=== PATIENT | male | born 1950 | race Caucasian/White ===

== ENCOUNTER 2016-05-19 05:54 | Day surgery (SDC) | payer OTHER ==
[2016-05-19] VITALS (8 sets, daily range): BP systolic 85–144; BP diastolic 46–93; PULSE 56–71; RESP 9–18; O2SAT 94–99
[~2016-05-19] VITALS: Ht 182.9 cm; Wt 128.3 kg
[~2016-05-19 05:54] MED LIST: CHOL500011 PO; GABA600T2 PO; GLUC500T12 PO; LOSA100T29 PO; MAGN30TA3 PO; OXYC1TAB24 PO; PROP120C2 PO; TAMS0.4C98 PO; TERA5CAP6 PO; ZOF8 PO
[2016-05-19] MEDS ORDERED: Ondansetron 2 mg/mL 2 mL Inj ONE (05:55)
[2016-05-19] MEDS ORDERED: Propofol 10,000 mCg/mL 20 mL Inj ONE (05:55)
[2016-05-19] MEDS ORDERED: CeFAZolin Inj 3 Gm/ D5W 50 mL Bag IV ONE (05:55)
[2016-05-19] MEDS ORDERED: Ketamine 10 mg/mL 20 mL Inj ONE (05:55)
[2016-05-19] MEDS ORDERED: fentaNYL-PF 50 mCg/mL 2 mL Inj ONE (05:55)
[2016-05-19] MEDS ORDERED: Dexamethasone 4 mg/mL Inj ONE (05:55)
[2016-05-19] MEDS ORDERED: CeFAZolin Inj 3 GM in IV Premix IV ONE (06:00)
[2016-05-19] MEDS ORDERED: Lactated Ringer's 1,000 ML IV ONE (06:26)
--- NOTE | 2016-05-19 08:37 | PCM.HPANE ---
Patient Data Surgeon Admitting Provider: Attending Provider:Sussy Holliday MD Primary Care Physician:Daylin Huffman PA-C Other Provider:Candice Rose Anesthesia Reason for Visit Gross Hematuria, Bladder Mass Ht/WT & BMI Height (Feet): 6 Height (Inches): 0.00 Weight (Kilograms): 128.280 Body Mass Index 38.00 Allergies Coded Allergies: No Known Allergies (Unverified , 05/17/16) Past Anesthesia History Anesthesia History: Denies:: Abnormal Airway, Anesthesia Reactions ("panic attack" after waking up from dalila,no problems with other), Difficult Intubation, Fam Anesthesia Reaction, Fam Malignant Hypertherm Diabetes History Hx Diabetes?: No MRSA MRSA: No Medications Hypertension Medication: Yes Home Meds Incl Beta Ellen: Yes (PROPROANLOL) Date Beta Ellen Taken: May 19, 2016 Time Beta Ellen Taken: 0430 Reported Medications Gabapentin 600 Mg [id number] Mg PO QID PRN For Pain Ref 0 05/17/16 Ondansetron (Zofran)8 Mg Tablet8 Mg PO BID PRN For Nausea 05/17/16 Cholecalciferol (Vitamin D3) (Vitamin D3)5,000 Unit Tablet5,000 Unit PO DAILY 05/17/16 Terazosin 5 Mg Capsule5 Mg PO BID Ref 0 05/17/16 Tamsulosin (Flomax)0.4 Mg Capsule0.8 Mg PO DAILY Ref 0 05/17/16 Propranolol ER 120 Mg Cap.sa.[id number] Mg PO BID 05/17/16 oxyCODONE-Acetaminophen 5-325 mg 1 Each Tablet1 Tab PO Q4H PRN For Pain Ref 0 05/17/16 Magnesium 30 Mg [id number] Mg PO DAILY 05/17/16 Losartan Potassium 100 Mg [id number] Mg PO DAILY 05/17/16 Glucosamine 500 Mg [id number] Mg PO DAILY 05/17/16 History HEENT History: Positive for:: Hearing Problem Denies:: Abnormal Airway Cataracts Difficult Intubation Dysphagia Glaucoma Sinus Problem TMJ Cardiovascular History: Positive for:: Hypertension Denies:: AICD Abdominal Aortic Aneurism Atrial Fibrillation Cardiac Surgery Chest Pain Congestive Heart Failure Coronary Artery Disease Edema Heart Murmur Irregular Heartbeat Pacemaker Peripheral Vascular Rheumatic Fever Hx of Respiratory Problem?: Yes Respiratory History: Positive for:: Asthma (with allergies when younger) Pneumonia (hx of bronchial pneumonia- 2-3 years ago) Denies:: COPD Emphysema Oxygen Administration Tuberculosis Use of C-PAP Machine (has not had sleep study, recommended ) Use of Inhalers / NEBS Hx Neurologic Problems?: Yes Neurological History: Positive for:: Headaches (migraines- on propanolol ( years ago)) Denies:: CVA Dizziness Multiple Sclerosis Parkinson's Disease Seizures TIA Hx of GI Problems?: Yes Gastrointestinal History: Positive for:: Gall Bladder Disease (removed ) Gastroesphageal Reflux (not taking med for 1-2 years) Denies:: Cirrhosis Gastrointestinal Bleeding Hepatitis Hiatal Hernia Liver Disease Rectal Bleeding Hx of Problems?: Yes Genitourinary History: Positive for:: Kidney Stones (hx of, passed spontaneously) Denies:: Urinary Tract Infection (not current ) Other Pertinent History: bladder tumor current admission problem Male Hx: Denies:: Prostate Problems Scrotal Mass Testicular Surgery Skin History: Denies:: History Skin Disorders? Pressure Ulcers Hx Musculoskeletal Problems?: Yes Musculoskeletal History: Positive for:: Osteoarthritis Denies:: Back Injury Fibromyalgia Joint Replacement Musculoskeletal Trauma (knee scope hx) Myasthenia Gravis Rheumatoid Arthritis Hx of Psycho/Social Problems?: No Psycho Social History: Denies:: Anxiety Hx Depression Hx Surgeries?: Yes (knee scope, left hydrocele. dalila) Hx Any Other Health Problems?: Yes Other History: Denies:: Cancer Thyroid Disease History Blood Transfusions: Positive for:: Accept Blood Products? Denies:: Blood Transfusions Hx Diabetes: No Hx Alcohol Use: YesAlcoholic Drinks Per Day: 2-3 drinks weekHx Substance Use: Yes (marijuana- edibles and inhalant)Have You Smoked inLast 12 mo: No Stop/Bang S-Snoring: Do You Snore Loudly: No T-Tired: feel tired, fatigued: Yes O-Obsered: Observed not breath: Yes P-Blood Pressure: treated: Yes B- Body Mass Index > 35 kg/m2: Yes A- Age over 50: Yes N- Neck Large Circumference: No G- Gender Male: Yes KAITLIN Total Score: 6 KAITLIN Risk Assessment: High Risk, =/>3 Yes KAITLIN Category 4 OutPt Procedure: Yes Risk Assessment Category Category 1A: Patient has history of documented sleep apnea, and HAS NOT received any narcotic, sedative or anesthesia administration during this stay. Category 1B: Patient has history of documented sleep apnea, and HAS received any narcotic , sedative or anesthesia administration during this stay Category 2: Patient has SUSPECTED Obstructive Sleep Apnea, and HAS received any narcotic , sedative or anesthesia administration during this stay. Category 3: Patient has SUSPECTED Obstructive Sleep Apnea and HAS NOT received narcotic, sedative or anesthesia administration during this stay. Category 4: Outpatient in Procedural Areas with known sleep apnea or who screen positive for High Risk via the STOP/BANG questionnaire. Exam Exam Vital Signs Vital Signs Date Time Temp Pulse Resp B/P Pulse Ox O2 Delivery O2 Flow Rate FiO2 05/19/16 06:27 36.3 71 17 141/93 98 Room Air General Appearance: Alert, Oriented X3, Cooperative, No Acute Distress HEENT/AIRWAY: MP 3 Lungs: Clear to Auscultation, Normal Air Movement Heart: Exam Unremarkable, Regular Rate/Rhythm, No Murmurs/Rubs/Gallops Meds/Labs/Diagnostics Admission Meds Current Medications Lactated Ringer's (Lr) 1,000 ml @ ud STK-MED ONCE IV Last administered on 05/19t 06:26; Start 05/19/16 at 06:26; Stop 05/19/16 at 06:27; Status DC Plan Impression Patient chart reviewed, patient interviewed and anesthestic plan with risks, benefits, and alternatives discussed, and informed consent obtained. NPO Status: 05/18@2200, WATER @ 0430 ASA Physical Status: ASA3 Severe Disease (BMI 38 and MP 3) Anesthetic Plan: GA Bene/Risks/Altern/Consents: Yes HP Complete Prior to Induction: Yes Adithya Bang MD May 19, 2016 08:37
[2016-05-19] MEDS ORDERED: Lactated Ringer's 500 ML IV PRN (08:38)
[2016-05-19] MEDS ORDERED: Lactated Ringer's 1,000 ML IV SCH (08:38)
[2016-05-19] MEDS ORDERED: MetoCLOpramide 5 mg/mL 2 mL Inj IVPUSH PRN (08:40)
[2016-05-19] MEDS ORDERED: EPHEDrine Sulfate 50 mg/mL Inj IVPUSH PRN (08:40)
[2016-05-19] MEDS ORDERED: fentaNYL-PF 50 mCg/mL 2 mL Inj IVPUSH PRN (08:40)
[2016-05-19] MEDS ORDERED: Dexamethasone 4 mg/mL Inj IVPUSH PRN (08:40)
[2016-05-19] MEDS ORDERED: Phenylephrine 10,000 mCg/mL Inj IVPUSH PRN (08:40)
[2016-05-19] MEDS ORDERED: HYDROmorphone 1 mg/mL Inj IVPUSH PRN (08:40)
[2016-05-19] MEDS ORDERED: Ondansetron 2 mg/mL 2 mL Inj IVPUSH PRN (08:40)
[2016-05-19] MEDS ORDERED: Belladonna Alk-Opium 60 mg Rectal Suppository RECTAL ONE (08:56)
[2016-05-19] MEDS ORDERED: Ondansetron 8 mg ODT Tablet PO PRN (09:10)
[2016-05-19] MEDS ORDERED: Phenazopyridine 97.5 mg Tablet PO PRN (09:10)
[2016-05-19] MEDS ORDERED: HYDROcodone-APAP 5-325 mg Tablet PO PRN (09:10)
[2016-05-19] MEDS: Lactated Ringer's 1,000 ML IV SCH ×2 (09:18→10:15)
--- NOTE | 2016-05-19 09:54 | PCM.ANEP1 ---
Post Anesthesia Phase 1 PACU Phase 1 Assessment Vital Signs Vital Signs Date Time Temp Pulse Resp B/P Pulse Ox O2 Delivery O2 Flow Rate FiO2 05/19/16 09:39 62 16 142/83 98 Room Air 05/19/16 09:31 60 15 139/84 94 Room Air 05/19/16 09:25 36.7 64 9 139/89 96 Room Air 05/19/16 09:20 63 12 135/76 99 Simple Mask 10 05/19/16 09:17 69 17 123/77 98 Simple Mask 10 05/19/16 09:10 36.7 56 12 85/46 98 Simple Mask 10 05/19/16 06:27 36.3 71 17 141/93 98 Room Air Anesthetic Administered: GA Level of Alertness: Sleepy, easy to arouse SEBASTIAN's with Equal Strength: Yes Pain: No Nausea or Vomiting: No Airway Device: Oralpharangeal Airway Oxygen Delivery: Simple Mask Lungs: Clear to Auscultation, Normal Air Movement Dermatome Level: Full Sensation Adithya Bang MD May 19, 2016 09:54
--- NOTE | 2016-05-19 11:25 | DRSVH ---
PROCEDURE: X-RAY RETROGRADE UROGRAPHY INDICATIONS: LEFT RETO PYELO TECHNIQUE: 5 intra-operative images acquired by the Urology service. COMPARISON: [facility], CT, KIDNEY/ URETER/BLADDER, 03/25/2016, 10:05. FINDINGS: Small filling defect involves the upper pole the left kidney otherwise the left renal radha ecting system is normal as well as visualized portions of the ureter. No extravasation of contrast m edia. IMPRESSION: Small intraluminal filling defect involving the superior calyx of the left kidney likely a small stone. Dictated by: Jim Valadez [facility] Interpreted: Cindy Deluca MD on 05/19/2016 at 11:24 Transcribed by: XOCHITL on 05/19/2016 at 11:25 Approved by: Cindy Deluca MD, PhD on 05/19/2016 at 17:03
--- NOTE | 2016-05-19 11:29 | PCM.ANEP2 ---
Post Anesthesia Evaluation ASA/CMS Post Anesthesia VS in Patient's Normal Range?: Yes Resp Stable; Airway Patent?: Yes CV Function & Hydration Stable: Yes Mental Status Recovered?: Yes Pain control Satisfactory?: Yes N/V Control Satisfactory?: Yes Adithya Bang MD May 19, 2016 11:29
--- NOTE | 2016-05-20 10:07 | OP ---
[address] [address] OPERATIVE REPORT PATIENT: KAMRAN ABEL : 1950 MR#: [id number] ADMIT: 05/19/2016 JOB ID: [id number] DATE OF SURGERY: 05/19/2016 PROCEDURE NAME: 1. Transurethral resection and removal of bladder tumor, 0.5 cm in size. 2. Bilateral retrograde pyelogram. SURGEON: Sussy Holliday MD. ANESTHESIA: General. PREOPERATIVE DIAGNOSIS(ES): Small bladder mass. POSTOPERATIVE DIAGNOSIS(ES): Small bladder mass. INDICATIONS: The patient is a 65-year-old gentleman who was found on workup for gross hematuria including a noncontrasted CT ordered outside, at cystoscopy he was found to have a small papillary bladder mass with some dystrophic calcifications and was set up for cystoscopy, transurethral resection of bladder tumor and bilateral retrograde pyelography. PROCEDURE IN DETAIL: After appropriate informed consent was obtained, the patient was brought to the operating room. He received IV antibiotics prior to onset of procedure. SCDs were placed. Adequate general anesthesia was induced. He was carefully placed in dorsal lithotomy position. All pressure points carefully padded. Cleaned, prepped, and draped in the usual sterile fashion. Rigid scope was introduced into the patient's bladder which was surveyed systematically with both 30 and then 70-degree lenses. We did note the aforementioned small, 0.5 x 1 cm papillary bladder mass on a small stalk, with some dystrophic calcifications. There were no other lesions noted. No other areas of erythema. No other areas of concern. The patient did have a mildly high bladder neck. However, it was very easy to reach this tumor. We used a cold cup biopsy forceps to grasp this at the base including some submucosal tissue and into the muscle. A piece was handed off intact in several bites. There was moderate bleeding, which was controlled with Bugbee electrocautery. We also performed bilateral retrograde pyelography. A 6-Samoan open-ended catheter cannulized first the right and then also the left ureteral orifice. Retrograde pyelography revealed sharp calices, nondilated ureter and no fixed filling defects on the right side. There was one small air bubble which was mobile and seen to pass. No indications for any upper tract issues whatsoever. The left side likewise, sharp calices, nondilated, no filling defects, prompt drainage. Hemostasis was excellent. The patient's bladder was drained. He was given a B and O suppository for postop comfort. He was awakened, taken in stable condition to the postanesthesia care unit. JOVANY
--- NOTE | 2016-05-20 13:02 | DRSVH ---
PROCEDURE: X-RAY RETROGRADE UROGRAPHY INDICATIONS: BILAT RETO PYELO TECHNIQUE: 4 intra-operative images acquired by the Urology service. COMPARISON: None. FINDINGS: Limited exam demonstrating normal appearance of the left renal collecting system and visua lized portions of the ureter. No extravasation of contrast media. IMPRESSION: Normal exam. Dictated by: Jim ROBLES Interpreted: Ayde Kay MD on 05/20/2016 at 13:01 Transcribed by: STACY on 05/20/2016 at 13:01 Approved by: Ayde Kay M.D. on 05/20/2016 at 21:17
--- NOTE | 2016-05-24 15:27 | PATH ---
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 NO EVIDENCE OF MALIGNANCY. ICD10 CODE D30.3 GROSS DESCRIPTION: The specimen is received in one formalin filled container labeled with the patient's name, sublabeled "papillary bladder tumor" and consists of a 0.4 x 0.4 x 0.4 CM portion of tissue which is entirely submitted in one cassette. 05/19/2016 [facility] MICRO DESCRIPTION: Multiple slides of levels (five H&E slides) are examined. The deepest levels show a small papillary structure lined by normal-appearing urothelium which is not thickened and shows no cytologic atypia or significant mitotic activity. The adjacent flat urothelium shows no atypia. No malignant features identified, and no invasion is present. ICD-9 CODES: CPT CODES: 1: 43885 Electronically Signed Out Lizeth Liriano MD [facility] Pathology [facility] [address], [place] [address] Technical component performed at [facility], [address] [place] [address] Ave[address], [place], [address]
== END 2016-05-19 23:59 | disposition home or self-care (01) ==
LOC: SAS 05:54
PROVIDERS: ATTEND Urology
DX: D30.3 Benign neoplasm of bladder (principal); I10 Essential (primary) hypertension; M19.90 Unspecified osteoarthritis, unspecified site; Z87.442 Personal history of urinary calculi; Z87.891 Personal history of nicotine dependence; E66.9 Obesity, unspecified; Z68.38 Body mass index [BMI] 38.0-38.9, adult
CPT/HCPCS: 52234; 74420; J0690; J1100; J2405; J3010; J7120; Q9967